=== PATIENT | female | born 1985 | race Two or more races ===

== ENCOUNTER 2019-12-20 12:30 | Inpatient (IN) | payer MEDICAID, OTHER ==
[~2019-12-20] VITALS: Ht 157.5 cm; Wt 101.4 kg
[2019-12-20 14:28] LABS: Albumin 3.1 g/dL (3.4-5.0); BUN/Creatinine Ratio 13.3; Calcium 7.8 mg/dL (8.5-10.1); INR 1.01 (0.9-1.15); Partial Thromboplastin Time 26.7 sec (23.64-32.05); Potassium 3.6 mmol/L (3.5-5.1)
[2019-12-20 14:33] LABS: Bilirubin, Total 0.6 mg/dL (0.2-1.0); Total Protein 6.7 g/dL (6.4-8.2)
[2019-12-20 15:08] LABS: Eosinophils # (auto) 0.1 10 ^3/uL (0-0.8); Eosinophils % (auto) 0.5 % (0.0-7.0); Hematocrit 28.3 % (36.0-46.0); Hemoglobin 8.6 g/dL (12.2-16.2); Lymphocytes # (auto) 0.5 10 ^3/uL (0.4-5.4); Mean Corpuscular Volume 75.5 fL (80.0-100.0); Monocytes # (auto) 0.8 10 ^3/uL (0-1.3); Neutrophils % (auto) 93.1 % (37.0-80.0); Nucleated Red Blood Cells % 0.1 %; Platelet Count (auto) 70 10^3/uL (140-450); Red Blood Cells 3.75 10^6/uL (4.0-5.20)
[2019-12-20 15:10] LABS: Basophils # (auto) 0 10 ^3/uL (0-0.2); Basophils % (auto) 0.2 % (0.0-2.0); Lymphocytes % (auto) 2.6 % (10.0-50.0); Mean Corpuscular Hgb Conc. 30.4 g/dL (32.0-36.0); Monocytes % (auto) 3.6 % (0.0-12.0); Neutrophils # (auto) 19.7 10 ^3/uL (1.6-8.6); Red Cell Distribution Width 17.6 % (11.8-14.3); White Blood Cell 21.2 10^3/uL (4.4-10.8)
[2019-12-20] MEDS ORDERED: FUROSEMIDE 100 MG/10ML VIAL IV ONE (15:30)
[2019-12-20] MEDS ORDERED: MORPHINE SULF INJ 2 MG/ML SYRINGE 1ML IV PRN ×2 (15:30→15:45)
[2019-12-20] MEDS ORDERED: NITROGLYCERIN 0.4 MG SL TAB SL PRN ×3 (15:30→15:45)
[2019-12-20 15:31] LABS: Urine Bacteria FEW /hpf (None Seen); Urine Blood TRACE /uL (Negative); Urine Specific Gravity 1.002 (1.001-1.035); Urine WBC <1 /hpf (0 - 5)
[2019-12-20] MEDS ORDERED: ONDANSETRON HCL 4 MG/2 ML VIAL IV PRN (15:45)
[2019-12-20] MEDS ORDERED: cefTRIAXone 1GM/50ML D5W 50 ML IV ONE (15:45)
[2019-12-20] MEDS ORDERED: MORPHINE SULFATE 4 MG/ML SYR/VIAL IV PRN (15:45)
[2019-12-20] MEDS ORDERED: ZINC SULFATE 220mg CAP or TAB PO ONE (15:45)
[2019-12-20] MEDS ORDERED: LORazepam 0.5 MG TAB PO PRN (15:45)
[2019-12-20] MEDS ORDERED: HYDROcodone-ACET 5/325MG TAB PO PRN (15:45)
[2019-12-20] MEDS ORDERED: DEXTROSE (50%) 50ML SYRG IV PRN (15:45)
[2019-12-20] MEDS ORDERED: ALUM & MAG HYDROX-SIMETH LIQ(MAALOX) 30 ML PO ONE (15:45)
[2019-12-20] MEDS ORDERED: AZITHROMYCIN 500MG/ 250ML 250 ML IV ONE (15:45)
[2019-12-20] MEDS ORDERED: ASCORBIC ACID 500 MG TAB PO ONE (15:45)
[2019-12-20] MEDS ORDERED: ACETAMINOPHEN 500 MG TAB PO PRN (15:45)
[2019-12-20 16:13] LABS: Magnesium 1.6 mg/dL (1.6-2.6)
[2019-12-20 16:22] LABS: CRP High Sensitivity 4.01 mg/dL (< 0.3)
[2019-12-20 17:00] VITALS: BP 144/93
--- NOTE | 2019-12-20 17:00 | NUR ---
Telemetry admit from ER HALIE KELLY admitted to Telemetry unit after SBAR received. Patient oriented to ASYA CEBALLOS, RN primary RN, unit, room, bed, and unit policies regarding patient care and visiting hours. Patient now on continuous telemetry monitoring, tele box # 17 and telemetry reading on arrival to unit is SINUS TACHYCARDIA. Patient placed on bedside oxygen 2L/MIN, weighed by bedscale and encouraged to call if they ASSISTANCE. All questions and concerns addressed, patient verbalized understanding.
[2019-12-20 18:00] VITALS: BP 144/93
[2019-12-20] MEDS: FUROSEMIDE 20 MG/2 ML VIAL IV SCH (18:22)
[2019-12-20] MEDS: ACCU-CHEK COMFORT CURVE STRIP VI SCH ×2 (18:23→23:08)
[2019-12-20] MEDS: InsuLIN REG 1unit/0.01ml Soln (100units/ml) SC SCH ×2 (18:23→23:42)
[2019-12-20 18:59] VITALS: BP 144/93
--- NOTE | 2019-12-20 20:00 | NUR ---
OPENING NOTE PT UP TO RESTROOM. PT SOB. PT BACK IN BED, PLACED BACK ON NASAL CANNULA. AOX4. PT BREATHING BETTER NOW ON 2L O2. BED IN LOW POSITION. CALL LIGHT WITH IN REACH. WILL CONTINUE TO MONITOR.
[2019-12-20] MEDS ORDERED: predniSONE 20 MG TAB PO ONE (21:15)
[2019-12-20] MEDS: LISINOPRIL 20 MG TAB PO SCH (21:30)
[2019-12-20] MEDS ORDERED: levETIRAcetam 500 MG TAB PO ONE (21:30)
[2019-12-20 22:00] VITALS: BP 164/88
[2019-12-20] MEDS ORDERED: ALBUTEROL SULF HFA 90MCG INH 200DOSE IN SCH (22:00)
[2019-12-20] MEDS: METOPROLOL TARTRATE 25 MG TAB PO SCH (22:00)
[2019-12-20 22:10] VITALS: BP 128/85
[2019-12-20] MEDS ORDERED: WARFARIN SODIUM 2 MG TAB PO ONE (22:30)
--- NOTE | 2019-12-20 23:00 | NUR ---
gave pt incentive spirometer. pt was able to demo it.
[2019-12-20] MEDS: ATORVASTATIN 20 MG TAB PO SCH (23:02)
[2019-12-21] MEDS ORDERED: METO-158 PO (06:00)
[2019-12-21] MEDS ORDERED: LEVE500T22 PO (06:00)
[2019-12-21] MEDS ORDERED: ATO40T PO (06:00)
[2019-12-21] MEDS: ACCU-CHEK COMFORT CURVE STRIP VI SCH ×4 (06:26→23:24)
[2019-12-21 06:30] VITALS: BP 127/82
[2019-12-21] MEDS: FUROSEMIDE 20 MG/2 ML VIAL IV SCH ×2 (06:47→17:27)
[2019-12-21] MEDS: InsuLIN REG 1unit/0.01ml Soln (100units/ml) SC SCH ×4 (06:48→23:26)
--- NOTE | 2019-12-21 07:55 | NUR ---
OPENING SHIFT NOTE ASSUMED CARE OF PT. PT UP AND EATING BREAKFAST. PT AWAKE AND ALERT WITH NO SIGNS OF DISTRESS. INSTRUCTED ON POC AND TO CALL FOR ASSISTANCE PRN. BED IS IN LOW AND LOCKED POSITION WITH SIDE RAILS UP X2. CALL LIGHT WITHIN REACH. WILL CONTINUE TO MONITOR.
[2019-12-21 08:04] LABS: Basophils # (auto) 0 10 ^3/uL (0-0.2); Basophils % (auto) 0.1 % (0.0-2.0); Eosinophils # (auto) 0 10 ^3/uL (0-0.8); Lymphocytes # (auto) 1.2 10 ^3/uL (0.4-5.4); Platelet Count (auto) 74 10^3/uL (140-450)
[2019-12-21 08:06] LABS: Eosinophils % (auto) 0.1 % (0.0-7.0); Hematocrit 30.5 % (36.0-46.0); Hemoglobin 9.3 g/dL (12.2-16.2); Lymphocytes % (auto) 6.9 % (10.0-50.0); Mean Corpuscular Hemoglobin 22.8 pg (28.0-32.0); Mean Corpuscular Hgb Conc. 30.6 g/dL (32.0-36.0); Mean Corpuscular Volume 74.3 fL (80.0-100.0); Monocytes # (auto) 0.5 10 ^3/uL (0-1.3); Neutrophils % (auto) 89.9 % (37.0-80.0); Red Cell Distribution Width 17.7 % (11.8-14.3); White Blood Cell 17.8 10^3/uL (4.4-10.8)
[2019-12-21 08:20] LABS: INR 1.01 (0.9-1.15); Partial Thromboplastin Time 29.5 sec (23.64-32.05)
[2019-12-21 08:23] LABS: Albumin 3.8 g/dL (3.4-5.0); Anion Gap 11 (5-15); Blood Urea Nitrogen 18 mg/dL (7-18); Calcium 8.4 mg/dL (8.5-10.1); Carbon Dioxide 24 mmol/L (21-32); Chloride 100 mmol/L (98-107); Glucose 235 mg/dL (74-106); Magnesium 2.2 mg/dL (1.6-2.6); Potassium 3.5 mmol/L (3.5-5.1); Sodium 135 mmol/L (136-145)
[2019-12-21 08:25] LABS: Urine Bacteria NONE SEEN /hpf (None Seen); Urine Blood Negative /uL (Negative); Urine Mucus FEW (None Seen); Urine Specific Gravity 1.011 (1.001-1.035); Urine WBC 1 /hpf (0 - 5)
[2019-12-21 08:29] LABS: % Iron Saturation 5.9 % (15-50)
[2019-12-21 08:30] VITALS: BP 139/91
[2019-12-21 08:31] LABS: Alanine Aminotransferase 29 U/L (13-56); Alkaline Phosphatase 103 U/L (45-117); Aspartate Aminotransferase 21 U/L (15-37); BUN/Creatinine Ratio 12.2; Bilirubin, Total 0.8 mg/dL (0.2-1.0); CRP High Sensitivity 9.68 mg/dL (< 0.3); Cholesterol 230 mg/dL (< 200); Creatine Kinase IFCC 32 U/L (26-192); GFR African American 52 mL/min; GFR Non-African American 43 mL/min; HDL Cholesterol 60 mg/dL (40-59); LDL Cholesterol 131 mg/dL (< 100); Lactate Dehydrogenase 508 U/L (84-246); Total Protein 8.2 g/dL (6.4-8.2); Triglycerides 252 mg/dL (< 150)
[2019-12-21 08:44] LABS: Ferritin 29.3 ng/mL (10-322)
[2019-12-21 08:44] LABS: Alcohol, Urine < 3.0 mg/dL (0-5); Amphetamine Screen, Urine NEGATIVE (NEGATIVE); Barbiturate Scree,Urine NEGATIVE (NEGATIVE); Benzodiazephine Screen, Urine NEGATIVE (NEGATIVE); Cannabinoid Screen, Urine NEGATIVE (NEGATIVE); Cocaine Screen, Urine NEGATIVE (NEGATIVE); Opiate Scree,Urine NEGATIVE (NEGATIVE); Phencyclidine Screen, Urine NEGATIVE (NEGATIVE)
[2019-12-21] MEDS: DOCUSATE SOD 100 MG CAP PO SCH (09:23)
[2019-12-21] MEDS: predniSONE 20 MG TAB PO SCH ×2 (09:24→23:06)
[2019-12-21] MEDS: levETIRAcetam 500 MG TAB PO SCH ×2 (09:24→23:06)
[2019-12-21] MEDS: METOPROLOL TARTRATE 25 MG TAB PO SCH ×2 (09:25→23:07)
[2019-12-21] MEDS: LISINOPRIL 20 MG TAB PO SCH (09:25)
[2019-12-21] MEDS: AZITHROMYCIN 500MG/ 250ML 250 ML IV SCH (09:26)
[2019-12-21] MEDS: cefTRIAXone 1GM/50ML D5W 50 ML IV SCH (09:26)
[2019-12-21] MEDS ORDERED: ASPirin 81 mg TAB PO SCH (10:00)
[2019-12-21] MEDS ORDERED: LISINOPRIL 5 MG TAB PO SCH (10:00)
[2019-12-21] MEDS ORDERED: CHOLECALCIFEROL (VITD3) 1,000IU=25mCg TAB PO SCH (10:00)
[2019-12-21] MEDS ORDERED: ENOXAPARIN SOD 40 MG/0.4 ML SYRINGE SC SCH (10:00)
[2019-12-21] MEDS ORDERED: AZITHROMYCIN 500MG/D5WorNS 250ml IV SCH (10:00)
[2019-12-21] MEDS ORDERED: ZINC SULFATE 220mg CAP or TAB PO SCH (10:00)
[2019-12-21] MEDS ORDERED: ASCORBIC ACID 1,000 MG TAB PO SCH (10:00)
[2019-12-21 12:30] VITALS: BP 120/80
[2019-12-21 13:25] VITALS: BP 118/77
--- NOTE | 2019-12-21 13:30 | NUR ---
EAST TRANSFER PATIENT TRANSFERRED FROM [facility] AFTER SBAR RECEIVED FROM AMARA DEL CID. PATIENT ALERT,AWAKE, AND ORIENTED. NO S/S OF SOB, DISTRESS, OR SOB. BED IN LOWEST/LOCKED POSITION, BED RAILS UP X2, CALL LIGHT WITHIN REACH. INSTRUCTED ON POC. WILL CONTINUE TO MONITOR Q1H AND PRN
--- NOTE | 2019-12-21 13:36 | NUR ---
PT TRANSFERRED TO [facility] PER CHARGE NURSE INSTRUCTIONS. SBAR GIVEN TO AMARA PALACIOS. NO SIGNS OF DISTRESS AT TIME OF DEPARTURE.
--- NOTE | 2019-12-21 16:00 | NUR ---
MD ROUNDS DR FRANCO AT BEDSIDE DISCUSSING POC WITH PATIENT. NO NEW ORDERS RECEIVED AT THIS TIME. WILL CONTINUE TO MONITOR
[2019-12-21 16:41] VITALS: BP 122/64
[2019-12-21] MEDS ORDERED: WARFARIN SODIUM 5 MG TAB PO ONE (17:00)
[2019-12-21] MEDS ORDERED: SODIUM FERR GLUC 62.5MG/5ML 125 MG in SODIUM CHL 0.9% 100 ML IV ONE (17:30)
[2019-12-21] MEDS: IRON SUCROSE COMPLEX 200 MG in SODIUM CHL 0.9% 100 ML IV SCH (18:05)
--- NOTE | 2019-12-21 19:20 | NUR ---
Opening Shift Note Assumed care of patient, awake and alert. No S/S of distress/SOB or pain. Patient on 2L NC and tolerating well. Instructed on POC and to call for assist PRN, will continue to monitor for changes Q1hr and PRN. Call light and bedside table are within reach. Safety precautions maintained bed rails 2x and bed is in lowest position.
[2019-12-21 21:58] VITALS: BP 117/70
[2019-12-21] MEDS: ATORVASTATIN 20 MG TAB PO SCH (23:06)
--- NOTE | 2019-12-22 04:38 | NUR ---
Endorsed care to Harry MALONEY
--- NOTE | 2019-12-22 04:40 | NUR ---
assumed care of pt. no complaints at this time. call light in reach, will continue to monitor.
[2019-12-22 05:15] VITALS: BP 107/71
[2019-12-22] MEDS: ACCU-CHEK COMFORT CURVE STRIP VI SCH ×3 (05:41→18:00)
[2019-12-22] MEDS: FUROSEMIDE 20 MG/2 ML VIAL IV SCH (05:41)
[2019-12-22] MEDS: InsuLIN REG 1unit/0.01ml Soln (100units/ml) SC SCH ×3 (05:42→19:00)
[2019-12-22 05:59] LABS: Basophils # (auto) 0 10 ^3/uL (0-0.2); Eosinophils # (auto) 0 10 ^3/uL (0-0.8); Monocytes # (auto) 0.9 10 ^3/uL (0-1.3)
[2019-12-22 06:01] LABS: Basophils % (auto) 0.1 % (0.0-2.0); Eosinophils % (auto) 0.2 % (0.0-7.0); Hematocrit 27.6 % (36.0-46.0); Hemoglobin 8.6 g/dL (12.2-16.2); Lymphocytes # (auto) 1.1 10 ^3/uL (0.4-5.4); Lymphocytes % (auto) 5.1 % (10.0-50.0); Mean Corpuscular Hemoglobin 22.9 pg (28.0-32.0); Mean Corpuscular Hgb Conc. 30.9 g/dL (32.0-36.0); Monocytes % (auto) 4.3 % (0.0-12.0); Neutrophils # (auto) 19.9 10 ^3/uL (1.6-8.6); Neutrophils % (auto) 90.3 % (37.0-80.0); Platelet Count (auto) 68 10^3/uL (140-450); Red Blood Cells 3.74 10^6/uL (4.0-5.20); Red Cell Distribution Width 17.6 % (11.8-14.3)
--- NOTE | 2019-12-22 06:08 | NUR ---
this nurse observed that pt had voided on the bed, whereas during report it was expressed that pt was alert and oriented x4 and self care to restroom. this nurse proceeded to ask he questions and responses were delayed and pt had glazed look in eyes. she managed to mutter one word, "yea", "no" to questions but unable to form complete sentences. pt does not appear to be in any distress. vitals taken 98/68mmhg and HR 84. bed locked, low and 2x rails up and padded. this nurse paged hospitalist, awaiting call back.
[2019-12-22 06:18] LABS: Calcium 8.2 mg/dL (8.5-10.1)
[2019-12-22 06:20] LABS: BUN/Creatinine Ratio 22.9
--- NOTE | 2019-12-22 06:22 | NUR ---
pt on 2L on distress observed. bed locked, low and 2x rails up and padded. call light is in reach. this nurse will continue to monitor. hospitalist placed orders for PRN ativan 1mg q5min for seizures.
[2019-12-22] MEDS ORDERED: LORazepam 2MG/ML-1ML VIAL IV PRN ×2 (06:30→13:30)
--- NOTE | 2019-12-22 07:30 | NUR ---
Opening Shift Note Assumed care of patient. Patient appears to be in a postictal phase at this time. Per mold shifter report, patient may have had a seizure (see previous notes). When asking patient name and all she replies is "Yea". Noted some right sided weakness at time of assessment. Will continue to monitor. No S/S of distress/SOB or pain. Bed is low, locked with 2x side rails up. Seizure precautions in place. Call light is within reach. Instructed on POC and to call for assist PRN, will continue to monitor for changes Q1hr and PRN.
[2019-12-22] MEDS: cefTRIAXone 1GM/50ML D5W 50 ML IV SCH (08:45)
[2019-12-22] MEDS: levETIRAcetam 500 MG TAB PO SCH ×3 (08:45→22:21)
[2019-12-22] MEDS: METOPROLOL TARTRATE 25 MG TAB PO SCH ×3 (08:46→22:00)
[2019-12-22] MEDS: predniSONE 20 MG TAB PO SCH ×3 (08:46→22:20)
[2019-12-22 09:00] VITALS: BP 125/80
[2019-12-22] MEDS: DOCUSATE SOD 100 MG CAP PO SCH (10:00)
--- NOTE | 2019-12-22 10:15 | NUR ---
Paging Dr. Allen During patient rounds this nurse reassessed patient. Patient still not able to verbalize name and . Patient rambles random words and voices "yea" when asked questions. Upon assessment of extremities noted severe right sided weakness to right arm, and severe right leg weakness. Waiting for Dr. Rodriguez call back to update on patient's change of status.
--- NOTE | 2019-12-22 10:22 | NUR ---
Received call back Updated Dr. Allen on patient's status. New orders carried out (see orders).
--- NOTE | 2019-12-22 11:10 | NUR ---
Radiology/ test Received a call for radiology. They are unable to do CT until HCG or urine test is done. There are no straight catheter supplies on this floor. Charge nurse Ann will gather supplies.
--- NOTE | 2019-12-22 11:50 | NUR ---
Supplies Received supplies to perform straight urinary catheter.
[2019-12-22] MEDS ORDERED: SODIUM FERR GLUC 62.5MG/5ML 125 MG in SODIUM CHL 0.9% 100 ML IV SCH (12:00)
--- NOTE | 2019-12-22 12:03 | NUR ---
testing tech Transporting patient down for Head CT. No distress noted upon departure.
--- NOTE | 2019-12-22 12:05 | NUR ---
Urine dipstick Results are negative. Radiology at bedside to transport patient for ordered head CT.
--- NOTE | 2019-12-22 12:20 | NUR ---
Back from CT No distress noted upon return.
[2019-12-22] MEDS: AZITHROMYCIN 500MG/ 250ML 250 ML IV SCH (12:37)
[2019-12-22 13:00] VITALS: BP 135/68
--- NOTE | 2019-12-22 13:20 | NUR ---
Social Service/HLOC Spoke with Jackelin regarding transfer for [facility]. Jackelin provided fax number to [place] [phone] This nurse is waiting for Head CT results to be dictated then will send patients information to transfer center.
[2019-12-22] MEDS: ATORVASTATIN 20 MG TAB PO SCH ×2 (13:30→22:21)
[2019-12-22] MEDS ORDERED: LABETALOL HCL 5 MG/ML 4ML SYRINGE IV PRN (13:30)
[2019-12-22] MEDS ORDERED: MEROPENEM 500MG IVPB 50 ML IV ONE (13:30)
[2019-12-22] MEDS ORDERED: SODIUM CHLORIDE 0.9% 1,000 ML IV SCH (13:30)
--- NOTE | 2019-12-22 13:40 | NUR ---
Hematology/Charlette Spoke with Dr. Ovalles regarding patient. MD asked for current platelet count. Provided MD with information. No new orders received.
[2019-12-22] MEDS ORDERED: DAPTOmycin 500 MG in SODIUM CHL 0.9% 50 ML IV ONE (14:00)
[2019-12-22] MEDS: IRON SUCROSE COMPLEX 200 MG in SODIUM CHL 0.9% 100 ML IV SCH (14:17)
[2019-12-22] MEDS ORDERED: ASPirin 300 MG RECTAL SUPP PR SCH (14:23)
--- NOTE | 2019-12-22 14:33 | NUR ---
[facility] TRANSFER Called and spoke with Liza and gave report for this patient. This nurse informed [facility] nurse about Head CT results.
--- NOTE | 2019-12-22 14:45 | NUR ---
TRANSFER: Received patient from [facility] after receiving report from AMARA Hester. Patient connected to bedside monitor. Reading on arrival SR 80s. VSS 141/80, 98, 18,96% on 2L NC, 98.8 oral. Patient is alert to self, unable to state birthday and answers all questions with 'ok'. Patient with IV to right upper arm #20 that has NS infusing at 75ml/hr and Ferrlicit running. Patient with orders to transfer to [place] for [facility] and waiting on authorization and bed. Bed with seizure precautions in place, in lowest position, rails up x3 and call light within reach. Will continue to monitor q1hr/PRN.
--- NOTE | 2019-12-22 14:52 | NUR ---
Faxed Paperwork Faxed paperwork to [facility]. Endorsed care to JOSÉ RN.
--- NOTE | 2019-12-22 15:15 | NUR ---
New PIV #22 started in right forearm after two attempts.
--- NOTE | 2019-12-22 15:30 | NUR ---
MDs: Notified Dr Summers and Dr Allen of CT Brain results via telephone.
--- NOTE | 2019-12-22 15:45 | NUR ---
Spoke to EDIS Benítez. Authorization for [facility] is #[id number]. Nursing to call and provide number once patient is accepted by [facility] and bed is assigned.
[2019-12-22] MEDS: MEROPENEM 1GM IVPB 50 ML IV SCH ×2 (15:51→23:00)
--- NOTE | 2019-12-22 15:54 | NUR ---
Speech therapy at bedside.
[2019-12-22 16:00] VITALS: BP 119/68
--- NOTE | 2019-12-22 16:02 | NUR ---
SWALLOW EVALUATED. RIGHT SIDE WEAKNESS. PATIENT HAS NATURAL TEETH UPPER AND LOWER. PATIENT HAS RIGHT SIDE WEAKNESS BUT ABLE TO FOLLOW COMMANDS. ABLE TO TOLERATE PUREE DIET TEXTURE WITH THIN LIQUIDS WITH NO OVERT SIGNS OR SYMPTOMS OF ASPIRATION. NURSING NOTIFIED. WILL NEED MAX ASSISTANCE FOR FEEDING.
--- NOTE | 2019-12-22 16:40 | NUR ---
T/C from Dr Summers. CTA head and neck ordered stat. Spoke to Radiology. Patient has been NPO, has #[address] in right upper arm. CT scanner currently down for cleaning. Radiology will call once scanner is clean. Harry MORELOS aware of RN needed for transport.
[2019-12-22] MEDS ORDERED: LINEZOLID 600MG/300ML 300 ML IV SCH (17:00)
--- NOTE | 2019-12-22 17:24 | NUR ---
T/C from Dr Summers. Informed him of the delay of CTA neck/brain due to cleaning of machine. gave new orders to repeat CT Brain w/o contrast prior to CTA.
[2019-12-22] MEDS ORDERED: PRED20TA2 PO (17:35)
--- NOTE | 2019-12-22 17:47 | NUR ---
Patient's at bedside to visit for 10 minutes. Home medications clarified and updated. Consents of CTA signed and transfer paperwork signed. Password established of '[email or web address]'.
--- NOTE | 2019-12-22 18:15 | NUR ---
Patient transported to radiology on portable monitor escorted by CN. Harry
[2019-12-22] MEDS ORDERED: IOHEXOL 350 MG/ML 100ML IJ ONE (18:24)
--- NOTE | 2019-12-22 19:00 | NUR ---
CLOSING SHIFT NOTE: Patient returned from CT via bed. New PIV started in right FA #20. Patient has been accepted by [facility], bed pending. Report given to Michaela STYLES RN. Will endorse STEPHANI RN to fax report of CTA Neck/Brain to [facility] at [phone] Summers of results.
--- NOTE | 2019-12-22 19:38 | NUR ---
Dr. Summers paged. Radiologist office called, requested to talk to Neurologist on the case regarding CTA result. 07.41pm Connected Dr. Summers to radiologist Dr. Rust.
--- NOTE | 2019-12-22 19:50 | NUR ---
demonstrator sewing techniques at bedside for carotid Doppler study.
[2019-12-22 20:00] VITALS: BP 145/81
--- NOTE | 2019-12-22 20:00 | NUR ---
Opening Shift Note Assumed care of patient, lying in bed with eyes closed, drowsy, arousal by voice, obeyed commands slowly, nodded appropriately, Left side mild weak, right side flaccid. Breathing on O2NC 2LPM, even and nonlabored, tachypneic, No S/S of distress/SOB or pain. Bed in low position, call light within reach, fall and safety precaution in place, all alarms are audible. Due to void. 20G IV at left FA, CDI site, flushed well. 22F IV at right FA, CDI site, flushed well, will connect with NS and infuse at 75ml/hr as order. Instructed on POC, will continue to monitor for changes Q1hr and PRN.
--- NOTE | 2019-12-22 20:38 | NUR ---
CTA result FAXED to [facility] Transfer center.
--- NOTE | 2019-12-22 20:39 | NUR ---
Paged Dr. Erwin for signature for bed [facility] transfer form. Await call back, and will faxed the form to [facility] transfer center.
--- NOTE | 2019-12-22 21:10 | NUR ---
Elimination Pt incontinence, passed small amount of urine to the pad. Meaghan care and partial bath done. Partial linens changed. Pt tolerated well. Pt tried to help and grabbed the side rail with left hand. Left leg able to lift slowly. Will check urine post void with bladder scan. 21.30pm Post-voided urine checked. 619 ml found from the scan, will page Hospitalist for Lombardi's catheter placement. Addendum: 12/22/19 at 2215 by Jordy Aguila RN Dr. Erwin called back, ordered to retain Lombardi's catheter, TORB and verified, will carry order.
--- NOTE | 2019-12-22 22:12 | NUR ---
called. Pt's condition and transfer details updated.
--- NOTE | 2019-12-22 22:20 | NUR ---
Condition update, HS medication Pt's condition stable. Pt nodded or shook her head in order to answer yes or no appropriately. Pt swallowed well with crushed medicines mixed with apple sauce and thickened water, no coughing noted. Held BP medicine at the moment due to BP trending down, known case brain infarction, and transfer to higher facility soon. Will hold Merrem at 23.00pm due to transfer to [facility] soon, will give the report to RN about medication given and holding. Continue care.
--- NOTE | 2019-12-22 22:35 | NUR ---
Lombardi catheter insertion Patient assessed and determined to be in need of Lombardi catheter, retention of urine. Order obtained from MD. Patient educated on catheter and reason for insertion. Lombardi catheter 16 gauge Yi inserted with clean sterile technique. Patient tolerated well. Received clear straw to light allan urine, initially 350ml.
[2019-12-22 23:21] VITALS: BP 117/59
--- NOTE | 2019-12-22 23:52 | NUR ---
Report given to Nadia MALONEY at [facility].
[2019-12-23] VITALS: BP 117/59
[2019-12-23] MEDS: InsuLIN REG 1unit/0.01ml Soln (100units/ml) SC SCH
--- NOTE | 2019-12-23 00:24 | NUR ---
Update and transfer info given to Raoul, Pt's . Phone number [phone]. Await [facility] to bulk picker, will send all belongings with patient, including Pt's phone, charge and eye glasses.
[2019-12-23] MEDS: ACCU-CHEK COMFORT CURVE STRIP VI SCH (00:53)
--- NOTE | 2019-12-23 01:06 | NUR ---
[facility] team at bedside. Report given, signature obtained. Patient's belonging with Patient, including Cell phone, product marketing coordinator and eyeglass. Pt's condition and V/S stable. Transfer document and patient's d/c packet with [facility] team.
--- NOTE | 2019-12-23 01:36 | NUR ---
Blood c/s resulted positive with gram positive cocci in cluster. Called Nadia MALONEY at [facility] and notified the result and ETA. Result faxed to unit [id number], Nadia MALONEY at FAX number [phone].
--- NOTE | 2019-12-23 09:23 | NUR ---
Weekend veterinary receptionist 12/22/19 1300 I received a call from Dr. Allen letting me know that this patient has an emergent need to transfer to higher level of care-preferrably [facility] due to acute stroke. I spoke with nurse Kacie and asked her to fax packet to [facility]. I called [facility] transfer center and spoke with Soraya, provided her with contact information for both Dr. Allen and Dr. Summers. I spoke with Dr. Summers and updated him on the status of the transfer. I called [facility] and spoke with Down Filler Cornel [phone]. He provided me with authorization number [id number] for [facility] and [id number] for [facility]. I provided Soraya at the [facility] transfer center auth number from [facility] as well as contact information for human services case manager Cornel. I provided nurse Kacie with [facility] authorization number so she can call them when bed is available. Patient was transferred to [place] [id number] and I spoke with nurse De Jesus-asked her to fax COVID-19 test result to [facility] per their request. I let nurse De Jesus know that [facility] was in the process of getting the doctors to connect-and that she could set up [facility] when [facility] calls her with a bed assignment.
[2019-12-23 10:59] LABS: Folate (Folic Acid) > 24.00 ng/mL (5.38-24)
[2019-12-23 13:47] LABS: Hepatitis C Antibody Negative (Negative)
[2019-12-24 08:25] LABS: Hepatitis B Surface Antigen Negative (Negative)
== END 2019-12-23 01:20 | disposition short-term general hospital (02) | DRG 720 ==
LOC: ER 12:30 → TELE 12:31 → TELE-EAST 17:04 → TELE-WESTW 12-21 13:26 → ICU CENTRL 12-22 14:45 → DOU IN ICU 12-22 15:31
PROVIDERS: ADMIT Hospitalist; ATTEND Hospitalist
DX: A41.9 Sepsis, unspecified organism (principal); I63.9 Cerebral infarction, unspecified; N17.0 Acute kidney failure with tubular necrosis; I50.21 Acute systolic (congestive) heart failure; G93.40 Encephalopathy, unspecified; D69.3 Immune thrombocytopenic purpura; J18.9 Pneumonia, unspecified organism; I11.0 Hypertensive heart disease with heart failure; I38 Endocarditis, valve unspecified; E11.65 Type 2 diabetes mellitus with hyperglycemia; R47.01 Aphasia; G81.91 Hemiplegia, unspecified affecting right dominant side; G40.409 Other generalized epilepsy and epileptic syndromes, not intractable, without status epilepticus; D50.9 Iron deficiency anemia, unspecified; R29.810 Facial weakness; I25.10 Atherosclerotic heart disease of native coronary artery without angina pectoris; Z20.818 Contact with and (suspected) exposure to other bacterial communicable diseases; R65.20 Severe sepsis without septic shock; I25.2 Old myocardial infarction; Z79.01 Long term (current) use of anticoagulants; Z79.82 Long term (current) use of aspirin; Z82.0 Family history of epilepsy and other diseases of the nervous system; Z82.49 Family history of ischemic heart disease and other diseases of the circulatory system; Z83.3 Family history of diabetes mellitus; Z86.2 Personal history of diseases of the blood and blood-forming organs and certain disorders involving the immune mechanism; Z86.73 Personal history of transient ischemic attack (TIA), and cerebral infarction without residual deficits; Z86.79 Personal history of other diseases of the circulatory system; Z95.1 Presence of aortocoronary bypass graft
CPT/HCPCS: 36415; 70450; 70496; 70498; 71045; 80048; 80053; 80061; 80307; 81001; 82533; 82550; 82607; 82728; 82746; 82962; 83010; 83036; 83540; 83550; 83605; 83615; 83735; 83880; 83930; 83935; 84100; 84300; 84443; 84484; 84550; 84702; 85025; 85045; 85379; 85610; 85652; 85730; 86141; 86592; 86803; 87040; 87070; 87077; 87186; 87340; 87804; 87880; 92610; 93005; 93306; 93886; G0378; J0696; J1756; J1815; J2185